=== PATIENT | female | born 1955 | race Caucasian/White ===

== ENCOUNTER → 2017-08-26 | Outpatient (CLI) | payer BC ==
[~2017-08-26] MED LIST: FISH OIL300 MG PO; FLOMAX0.4 MG PO; HYDROCHLOROTH12.5 M3 PO; KEFLEX500 MG PO; METFORMIN HCL500 MG PO; METRONIDAZOLE500 MG PO; NAPROSYN500 MG PO; NOHOMEMEDS; NORCO 5/3251 TABLET PO; OXYCODONE-ACET1 EACH PO; PERCOCET 5/31 TABLET PO; PROTONIX40 MG PO; WELCHOL625 MG PO; ZOFRAN4 MG PO
== END | disposition home or self-care (01) ==
LOC: RES 08-23 10:00
DX: J98.4 Other disorders of lung (principal)
CPT/HCPCS: 94060; 94727; 94729

== ENCOUNTER → 2017-11-06 | Outpatient (CLI) | payer BC | END | disposition home or self-care (01) | LOC: RES 12:55 | DX: J98.01 Acute bronchospasm (principal) | CPT/HCPCS: 94070; 94726; 94729 ==